=== PATIENT | female | born 1965 | race Two or more races ===

== ENCOUNTER 2017-01-24 13:14 | Inpatient (IN) | payer OTHER ==
[~2017-01-24] VITALS: Ht 167.6 cm; Wt 155.4 kg
[2017-01-24] VITALS (9 sets, daily range): BP systolic 80–109; BP diastolic 44–86
[2017-01-24] MEDS ORDERED: PredniSONE 20mg tab ORAL ONE (14:00)
--- NOTE | 2017-01-24 14:07 | Emergency Room Report ---
History of Present Illness General Chief Complaint: Upper Respiratory Illness Source: Patient Present Illness HPI 51 yo F with history of asthma, p/w SOB for 1 week SOB occurs both at rest and on exertion. + non productive cough. Denies chest pain. Patient has been using nebulizer x once a day, minimal relief. No recent steroid use. Pt states that this episode is similar to other episodes of asthma exacerbation. Denies fever, chills. Denies sick contacts or recent travel. Has required admission for asthma before. Patient denies history of ICU admissions, intubations, or usage of BIPAP for asthma. Denies history of PE/DVT, no recent surgeries, prolonged immobilzation, malignancy, or use of OCPs/HRT. Allergies: Coded Allergies: No Known Allergies (Unverified , 01/24/17) Patient History Past Medical History: none Past Surgical History: none Pertinent Family History: none Nursing Documentation-[facility] Past Medical History: No History, Except For Hx Hypertension: Yes Hx Asthma: Yes Hx Cerebrovascular Accident: No - RA Physical Exam Vital Signs Date Time Temp Pulse Resp B/P (MAP) Pulse Ox O2 Delivery O2 Flow Rate FiO2 01/24/17 13:32 97.9 97 20 97/65 97 Room Air Sp02 EP Interpretation: reviewed, normal, abnormal - hypoxic 90-92 General Appearance: normal inspection, well appearing, alert, GCS 15, non-toxic , mild distress Head: normocephalic, atraumatic Eyes: bilateral eye normal inspection, bilateral eye PERRL, bilateral eye EOMI ENT: normal ENT inspection, normal pharynx, normal voice, moist mucus membranes Neck: normal inspection, full range of motion, supple, no bony tend Respiratory: normal inspection, lungs clear, normal breath sounds, no respiratory distress, no retraction, no wheezing, speaking full sentences, chest symmetrical Cardiovascular #1: normal inspection, regular rate, rhythm, no edema, normal capillary refill Gastrointestinal: normal inspection, non tender, soft, non-distended, no guarding Musculoskeletal: normal inspection, back normal, normal range of motion, non- tender, other - no calf swelling/tenderness Neurologic: normal inspection, alert, oriented x3, responsive, manager respiratory III-XII nml as tested, motor strength/tone normal, sensory intact, normal gait, speech normal Psychiatric: normal inspection, judgement/insight normal, memory normal Skin: normal inspection, normal color, no rash, warm/dry, well hydrated, normal turgor Medical Decision Making Diagnostic Impression: Primary Impression: Hypoxia Additional Impression: Dyspnea ER Course 51 yo F with history of asthma p/w SOB DDX: asthma exacerbation, pneumonia, upper respiratory infection/viral syndrome , PE Plan: combivent nebulizer treatment x 3, steroids, EKG, CXR IV access, blood work including D-dimer ER Course: Patients respiratory status has been closely monitored in the ED. Patient has been treated with combivent x 3, steroids. Patient was tachycardic prior to administration of combivent, lung exam improved however patient stats she still feels lightheaded/sob Labs reveal: cr 1.6, mildly elevated D-dimer EKG: sinus tach, Q waves infero latral leads CXR poss R sided infiltrate D-dimer elevated (however only slightly) renal functional not amenable to CTA, and at this time d/w radiology and patient is too heavy for CT scanner Patient will be treated for presumed PE wit heparin given renal insuffiency IVF given to pt for slight renal insufficiency. I d/w radiology, cannot obtain VQ scan until tomorrow Patient currently with vitals HR 100, normal BP, hypoxic 90-92, inc with NC to 96 Repeat BP showed MAP >65 however now borderline BPs now with MAP 60s. Now deemed not stable for xfer Will admit to our facility. Heparin drip ordered Disposition: Patient will be admitted to telemetry floor at [facility] initially spoke to outside hospital receiving physician as pt was at that time stable for xfer, but now due to borderline low BP will not xfer. Patient requires close monitoring of respiratory status, continuation of AC, and VQ scan D/W Dr. Caldera . Laboratory Tests Test 01/24/17 14:05 01/24/17 17:00 01/24/17 17:40 White Blood Count 7.2 K/UL (4.8-10.8) Red Blood Count 4.40 M/UL (4.20-5.40) Hemoglobin 12.2 G/DL (12.0-16.0) Hematocrit 39.3 % (37.0-47.0) Mean Corpuscular Volume 89 FL (80-99) Mean Corpuscular Hemoglobin 27.8 PG (27.0-31.0) Mean Corpuscular Hemoglobin Concent 31.1 G/DL (32.0-36.0) L Red Cell Distribution Width 12.5 % (11.6-14.8) Platelet Count 349 K/UL (150-450) Mean Platelet Volume 7.6 FL (6.5-10.1) Neutrophils (%) (Auto) 59.5 % (45.0-75.0) Lymphocytes (%) (Auto) 31.4 % (20.0-45.0) Monocytes (%) (Auto) 5.9 % (1.0-10.0) Eosinophils (%) (Auto) 1.6 % (0.0-3.0) Basophils (%) (Auto) 1.6 % (0.0-2.0) D-Dimer 561 ng/mL (<500) H Sodium Level 139 mEQ/L (135-145) Potassium Level 4.0 mEQ/L (3.4-4.9) Chloride Level 100 mEQ/L (98-107) Carbon Dioxide Level 23 mEQ/L (20-30) Anion Gap 16 (5-15) H Blood Urea Nitrogen 28 mg/dL (7-23) H Creatinine 1.6 mg/dL (0.5-0.9) H Estimate Glomerular Filtration Rate 34.1 mL/min (>60) Glucose Level 120 mg/dL (74-106) H Calcium Level 9.2 mg/dL (8.6-10.2) Total Bilirubin 0.3 mg/dL (0.0-1.2) Aspartate Amino Transferase (AST) 14 U/L (5-40) Alanine Aminotransferase (ALT) 9 U/L (3-33) Alkaline Phosphatase 113 U/L (35-104) H Troponin I < 0.30 ng/mL (<=0.30) Total Protein 7.6 g/dL (6.6-8.7) Albumin 3.9 g/dL (3.5-5.2) Globulin 3.7 g/dL Albumin/Globulin Ratio 1.0 (1.0-2.7) Thyroid Stimulating Hormone (TSH) 0.005 uIU/mL (0.300-4.500) Prothrombin Time Pending Prothrombin Time INR Pending PTT Pending Arterial Blood pH 7.360 (7.350-7.450) Arterial Blood Partial Pressure CO2 37.2 mmHg (35.0-45.0) Arterial Blood Partial Pressure O2 69.5 mmHg (75.0-100.0) L Arterial Blood HCO3 21.0 mmol/L (22.0-26.0) L Arterial Blood Oxygen Saturation 92.2 % (92.0-98.0) Arterial Blood Base Excess -3.8 Janes Test Positive EKG Diagnostic Results Rate: tachycardiac Rhythm: NSR ST Segments: other - Q waves infero lateral leads sinus tach ASA given to the pt in ED: No Rhythm Strip Diag. Results EP Interpretation: yes Rhythm: NSR, no PVC's, no ectopy Chest X-Ray Diagnostic Results Chest X-Ray Diagnostic Results : Chest X-Ray Ordered: Yes # of Views/Limited/Complete: 1 View Indication: Shortness of Breath EP Interpretation: Yes Interpretation: other - poss R sided infiltrate Impression: Other - poss R sided infiltrate Interpreting ER Provider: Electronically signed by Guera Howard M.D. Last Vital Signs Date Time Temp Pulse Resp B/P (MAP) Pulse Ox O2 Delivery O2 Flow Rate FiO2 01/24/17 13:45 97.9 109 21 94/55 99 Room Air Disposition: ADMITTED INPATIENT Condition: Serious Guera Howard M.D. Jan 24, 2017 14:07
[2017-01-24 14:26] LABS: BASOPHILS % (AUTO) 1.6 % (0.0-2.0); EOSINOPHILS % (AUTO) 1.6 % (0.0-3.0); LYMPHOCYTES % (AUTO) 31.4 % (20.0-45.0); MEAN CORPUSCULAR HEMOGLOBIN 27.8 PG (27.0-31.0); MEAN CORPUSCULAR HGB CONC 31.1 G/DL (32.0-36.0); MEAN CORPUSCULAR VOLUME 89 FL (80-99); MEAN PLATELET VOLUME 7.6 FL (6.5-10.1); MONOCYTES % (AUTO) 5.9 % (1.0-10.0); NEUTROPHILS % (AUTO) 59.5 % (45.0-75.0); PLATELET COUNT 349 K/UL (150-450); RED CELL DISTRIBUTION WIDTH 12.5 % (11.6-14.8); WHITE BLOOD COUNT 7.2 K/UL (4.8-10.8)
[2017-01-24] MEDS: DuoNeb 0.5-3(2.5)mg/3ml neb HHN SCH ×5 (14:30→15:15)
[2017-01-24 14:38] LABS: CALCIUM 9.2 mg/dL (8.6-10.2); CREATININE 1.6 mg/dL (0.5-0.9); GLOMERULAR FILTRATION RATE 34.1 mL/min (>60); TOTAL PROTEIN 7.6 g/dL (6.6-8.7); TROPONIN I < 0.30 ng/mL (<=0.30)
[2017-01-24 15:02] LABS: THYROID STIMULATING HORMONE 0.005 uIU/mL (0.300-4.500)
[2017-01-24 17:43] LABS: ABG ALLEN TEST POSITIVE; ABG BASE EXCESS -3.8; ABG PCO2 37.2 mmHg (35.0-45.0)
[2017-01-24] MEDS ORDERED: Heparin 5000 units/ml inj SUBQ ONE (17:45)
[2017-01-24 18:04] LABS: INR 1.1 (0.9-1.1); PROTHROMBIN TIME 11.9 SEC (9.30-11.50)
[2017-01-24] MEDS ORDERED: Heparin 5000 units/ml inj IV ONE (19:00)
[2017-01-24] MEDS ORDERED: Heparin 25,000u/D5W 500ml 500 ML IV SCH ×2 (19:00)
[2017-01-24] MEDS ORDERED: IBUPROFEN600 MG ORAL (19:44)
[2017-01-24] MEDS ORDERED: VENTOLIN HFA18 GM INH (19:44)
[2017-01-24] MEDS ORDERED: TRAMADOL HCL50 MG ORAL (19:44)
[2017-01-24] MEDS ORDERED: MONTELUKAST SOD10 MG ORAL (19:44)
[2017-01-24] MEDS ORDERED: QVAR7.3 GM INH (19:44)
[2017-01-24] MEDS ORDERED: OMEPRAZOLE40 M1 ORAL (19:44)
[2017-01-24] MEDS ORDERED: BENAZEPRIL HCL40 MG ORAL (19:44)
[2017-01-24] MEDS ORDERED: CELEBREX200 MG ORAL (19:44)
[2017-01-24] MEDS ORDERED: HYDROCHLOROTH12.5 MG ORAL (19:44)
[2017-01-24] MEDS ORDERED: GABAPENTIN800 MG ORAL (19:44)
[2017-01-24] MEDS ORDERED: Acetaminophen 500mg (ES) tab ORAL ONE (20:30)
[2017-01-25] MEDS ORDERED: Heparin 25,000u/D5W 500ml 500 ML IV SCH ×3 (00:15→10:30)
[2017-01-25] MEDS ORDERED: DuoNeb 0.5-3(2.5)mg/3ml neb HHN PRN ×2 (00:15→18:00)
[2017-01-25] MEDS ORDERED: traMADol 50mg tab ORAL PRN ×2 (00:15→18:15)
[2017-01-25 01:20] LABS: BASOPHILS % (AUTO) 0.4 % (0.0-2.0); LYMPHOCYTES % (AUTO) 14.4 % (20.0-45.0); MEAN CORPUSCULAR HEMOGLOBIN 28.7 PG (27.0-31.0); MEAN CORPUSCULAR HGB CONC 32.3 G/DL (32.0-36.0); MEAN CORPUSCULAR VOLUME 89 FL (80-99); MONOCYTES % (AUTO) 1.7 % (1.0-10.0); NEUTROPHILS % (AUTO) 83.5 % (45.0-75.0); PLATELET COUNT 293 K/UL (150-450); RED BLOOD COUNT 3.94 M/UL (4.20-5.40); RED CELL DISTRIBUTION WIDTH 12.6 % (11.6-14.8); WHITE BLOOD COUNT 5.4 K/UL (4.8-10.8)
[2017-01-25 02:00] LABS: TROPONIN I < 0.30 ng/mL (<=0.30)
[2017-01-25 02:02] LABS: ALANINE AMINOTRANSFERASE 7 U/L (3-33); ALBUMIN/GLOBULIN RATIO 0.9 (1.0-2.7); ANION GAP 15 (5-15); ASPARTATE AMINO TRANSFERASE 12 U/L (5-40); CALCIUM 8.8 mg/dL (8.6-10.2); CARBON DIOXIDE 20 mEQ/L (20-30); CHLORIDE 105 mEQ/L (98-107); CREATININE 1.3 mg/dL (0.5-0.9); GLOMERULAR FILTRATION RATE 43.3 mL/min (>60); HEMOLYSIS 0; PHOSPHORUS 3.7 mg/dL (2.5-4.8); POTASSIUM 4.2 mEQ/L (3.4-4.9); SODIUM 140 mEQ/L (135-145); TOTAL PROTEIN 6.9 g/dL (6.6-8.7)
[2017-01-25 04:00] VITALS: BP 101/54
[2017-01-25 06:50] VITALS: BP 91/50
[2017-01-25 08:00] VITALS: BP 105/52
[2017-01-25] MEDS ORDERED: Qvar 40mcg Inhaler 6.8 gm INH SCH (09:00)
[2017-01-25] MEDS ORDERED: Montelukast 10mg tablet ORAL SCH (09:00)
[2017-01-25] MEDS ORDERED: celeBREX 200mg Cap **SURGERY PATIENTS ONLY ORAL SCH (09:00)
[2017-01-25] MEDS: DuoNeb 0.5-3(2.5)mg/3ml neb HHN SCH ×3 (09:45→22:54)
--- NOTE | 2017-01-25 11:44 | Diagnostic Imaging Report ---
Indication: Dyspnea Comparison: None A single view chest radiograph was obtained. Findings: There is a right chest wall deformity with several fractured ribs. These appear old. The lungs are clear. Cardiomegaly is present. Costophrenic angles are sharp. Impression: No acute disease
[2017-01-25 11:59] VITALS: BP 101/60
--- NOTE | 2017-01-25 12:26 | Diagnostic Imaging Report ---
Indication: Chest pain Technique: A ventilation/perfusion scan was performed. Ventilation was performed utilizing 40 mCi of Technetium 99m-DTPA. Perfusion was performed with 5.8 mCi of technetium 99m-MAA injected intravenously. Multiple side by side projections obtained. Findings: Ventilation is mildly heterogeneous. No desiccant defects are identified. Perfusion is mildly heterogeneous. No significant defects are identified. Impression: Low probability for pulmonary embolus
--- NOTE | 2017-01-25 13:44 | Consultation ---
History of Present Illness General Date patient seen: Jan 25, 2017 Chief Complaint: Upper Respiratory Illness Reason for Consultation: dyspnea Present Illness Allergies: Coded Allergies: No Known Allergies (Unverified , 01/24/17) Medication History Scheduled Albuterol Sulfate (Ventolin Hfa), 1 PUFF INH EVERY 6 HOURS, (Reported) Beclomethasone Dipropionate 40MCG Oral Inh (Qvar 40*), 1 PUFF INH TWICE A DAY, ( Reported) Benazepril Hcl* (Benazepril Hcl*), 40 MG ORAL DAILY, (Reported) Celecoxib* (Celebrex*), 200 MG ORAL DAILY, (Reported) Gabapentin* (Gabapentin*), 800 MG ORAL THREE TIMES A DAY, (Reported) Hydrochlorothiazide* (Hydrochlorothiazide*), 12.5 MG ORAL DAILY, (Reported) Montelukast Sodium* (Montelukast Sodium*), 10 MG ORAL DAILY, (Reported) Omeprazole (Omeprazole), 40 MG ORAL DAILY, (Reported) Scheduled PRN Tramadol Hcl* (Ultram*), 50 MG ORAL Q6H PRN for For Pain, (Reported) Discontinued Medications Ibuprofen* (Motrin*), 800 MG ORAL FOUR TIMES A DAY, (Reported) Discontinued Reason: MD discontinued med Patient History Healthcare decision maker Resuscitation status Full Code Advanced Directive on File Review of Systems All Other Systems: negative except mentioned in HPI Physical Exam General Appearance: morbidly obese Lines, tubes and drains: peripheral, central line HEENT: normocephalic, atraumatic Neck: non-tender, normal alignment, limited range of motion Respiratory/Chest: lungs clear Cardiovascular/Chest: normal peripheral pulses, regular rhythm Abdomen: normal bowel sounds Genitourinary/Rectal: normal genital exam Extremities: normal range of motion Last 24 Hour Vital Signs Date Time Temp Pulse Resp B/P (MAP) Pulse Ox O2 Delivery O2 Flow Rate FiO2 01/25/17 11:59 97.0 89 21 101/60 97 Nasal Cannula 2.0 01/25/17 09:57 105/52 01/25/17 09:45 75 18 100 Room Air 01/25/17 09:45 75 18 100 Room Air 01/25/17 09:45 73 20 100 Room Air 01/25/17 09:40 75 18 100 Room Air 01/25/17 08:00 81 01/25/17 08:00 97.2 89 21 105/52 98 Nasal Cannula 2.0 01/25/17 06:50 98.1 95 19 91/50 95 Nasal Cannula 95 01/25/17 04:00 98.1 92 19 101/54 95 Nasal Cannula 92 01/25/17 04:00 95 01/25/17 00:30 97.9 117 11 106/56 96 Nasal Cannula 2.0 01/24/17 23:49 97.9 117 11 106/56 96 Nasal Cannula 2.0 01/24/17 21:46 97.9 01/24/17 21:40 97.9 101 16 102/53 95 Nasal Cannula 2.0 01/24/17 19:40 97.9 106 16 106/64 95 Nasal Cannula 2.0 01/24/17 18:31 97.9 101 20 92/48 95 Nasal Cannula 2.0 01/24/17 18:11 97.9 98 18 109/86 97 Nasal Cannula 2.0 01/24/17 18:06 97.9 103 18 101/81 96 Nasal Cannula 2.0 01/24/17 17:40 97.9 106 20 101/54 96 Room Air 01/24/17 15:42 97.9 110 20 80/44 97 Room Air 01/24/17 14:51 78 20 100 Room Air 01/24/17 14:46 79 18 100 Room Air 01/24/17 14:45 79 20 100 Room Air 01/24/17 14:40 77 18 100 Room Air 01/24/17 14:40 77 18 Room Air 01/24/17 14:00 109 21 Room Air 01/24/17 13:45 97.9 109 21 94/55 99 Room Air Laboratory Tests Test 01/24/17 14:05 01/24/17 17:00 01/24/17 17:40 01/25/17 01:05 White Blood Count 7.2 K/UL (4.8-10.8) 5.4 K/UL (4.8-10.8) Red Blood Count 4.40 M/UL (4.20-5.40) 3.94 M/UL (4.20-5.40) L Hemoglobin 12.2 G/DL (12.0-16.0) 11.3 G/DL (12.0-16.0) L Hematocrit 39.3 % (37.0-47.0) 35.0 % (37.0-47.0) L Mean Corpuscular Volume 89 FL (80-99) 89 FL (80-99) Mean Corpuscular Hemoglobin 27.8 PG (27.0-31.0) 28.7 PG (27.0-31.0) Mean Corpuscular Hemoglobin Concent 31.1 G/DL (32.0-36.0) L 32.3 G/DL (32.0-36.0) Red Cell Distribution Width 12.5 % (11.6-14.8) 12.6 % (11.6-14.8) Platelet Count 349 K/UL (150-450) 293 K/UL (150-450) Mean Platelet Volume 7.6 FL (6.5-10.1) 7.0 FL (6.5-10.1) Neutrophils (%) (Auto) 59.5 % (45.0-75.0) 83.5 % (45.0-75.0) H Lymphocytes (%) (Auto) 31.4 % (20.0-45.0) 14.4 % (20.0-45.0) L Monocytes (%) (Auto) 5.9 % (1.0-10.0) 1.7 % (1.0-10.0) Eosinophils (%) (Auto) 1.6 % (0.0-3.0) 0.0 % (0.0-3.0) Basophils (%) (Auto) 1.6 % (0.0-2.0) 0.4 % (0.0-2.0) D-Dimer 561 ng/mL (<500) H Sodium Level 139 mEQ/L (135-145) 140 mEQ/L (135-145) Potassium Level 4.0 mEQ/L (3.4-4.9) 4.2 mEQ/L (3.4-4.9) Chloride Level 100 mEQ/L (98-107) 105 mEQ/L (98-107) Carbon Dioxide Level 23 mEQ/L (20-30) 20 mEQ/L (20-30) Anion Gap 16 (5-15) H 15 (5-15) Blood Urea Nitrogen 28 mg/dL (7-23) H 30 mg/dL (7-23) H Creatinine 1.6 mg/dL (0.5-0.9) H 1.3 mg/dL (0.5-0.9) H Estimat Glomerular Filtration Rate 34.1 mL/min (>60) 43.3 mL/min (>60) Glucose Level 120 mg/dL (74-106) H 182 mg/dL (74-106) H Calcium Level 9.2 mg/dL (8.6-10.2) 8.8 mg/dL (8.6-10.2) Total Bilirubin 0.3 mg/dL (0.0-1.2) < 0.2 mg/dL (0.0-1.2) Aspartate Amino Transf (AST/SGOT) 14 U/L (5-40) 12 U/L (5-40) Alanine Aminotransferase (ALT/SGPT) 9 U/L (3-33) 7 U/L (3-33) Alkaline Phosphatase 113 U/L (35-104) H 100 U/L (35-104) Troponin I < 0.30 ng/mL (<=0.30) < 0.30 ng/mL (<=0.30) Total Protein 7.6 g/dL (6.6-8.7) 6.9 g/dL (6.6-8.7) Albumin 3.9 g/dL (3.5-5.2) 3.3 g/dL (3.5-5.2) L Globulin 3.7 g/dL 3.6 g/dL Albumin/Globulin Ratio 1.0 (1.0-2.7) 0.9 (1.0-2.7) L Thyroid Stimulating Hormone (TSH) 0.005 uIU/mL (0.300-4.500) Prothrombin Time 11.9 SEC (9.30-11.50) H Prothromb Time International Ratio 1.1 (0.9-1.1) Activated Partial Thromboplast Time 37 SEC (23-33) H 143 SEC (23-33) H Arterial Blood pH 7.360 (7.350-7.450) Arterial Blood Partial Pressure CO2 37.2 mmHg (35.0-45.0) Arterial Blood Partial Pressure O2 69.5 mmHg (75.0-100.0) L Arterial Blood HCO3 21.0 mmol/L (22.0-26.0) L Arterial Blood Oxygen Saturation 92.2 % (92.0-98.0) Arterial Blood Base Excess -3.8 Janes Test Positive Phosphorus Level 3.7 mg/dL (2.5-4.8) Magnesium Level 2.0 mg/dL (1.7-2.5) Test 01/25/17 09:45 Activated Partial Thromboplast Time 47 SEC (23-33) H Height (Feet): 5 Height (Inches): 6.00 Weight (Pounds): 342 Medications Current Medications Medications (Trade) Dose Ordered Sig/Jarrett Route PRN Reason Start Time Stop Time Status Last Admin Dose Admin Albuterol/ Ipratropium (DuoNeb 0.5-3(2.5)mg/3ml) 3 ml Q4H PRN HHN Shortness of Breath 01/25/17 00:15 01/30/17 00:14 Albuterol/ Ipratropium (DuoNeb 0.5-3(2.5)mg/3ml) 3 ml Q8HRT HHN 01/25/17 07:00 01/30/17 06:59 01/25/17 09:45 Beclomethasone Dipropionate (Qvar 40 Inhaler) 1 puff TWICE A DAY INH 01/25/17 09:00 02/24/17 08:59 01/25/17 09:54 Benazepril HCl (Lotensin) 40 mg DAILY ORAL 01/25/17 09:00 02/24/17 08:59 Celecoxib (CeleBREX) 200 mg DAILY ORAL 01/25/17 09:00 02/24/17 08:59 01/25/17 10:00 Gabapentin (Neurontin) 800 mg THREE TIMES A DAY ORAL 01/25/17 09:00 02/24/17 08:59 01/25/17 09:55 Hydrochlorothiazide (Hydrodiuril) 12.5 mg DAILY ORAL 01/25/17 09:00 02/24/17 08:59 01/25/17 09:56 Montelukast Sodium (Singulair) 10 mg DAILY ORAL 01/25/17 09:00 02/24/17 08:59 01/25/17 09:56 Tramadol HCl (Ultram) 50 mg Q6H PRN ORAL For Pain 01/25/17 00:15 02/01/17 00:14 Assessment/Plan Problem List: (1) Acute asthma exacerbation ICD Codes: J45.901 - Unspecified asthma with (acute) exacerbation SNOMED: 364497653 (2) History of hypertension ICD Codes: Z86.79 - Personal history of other diseases of the circulatory system SNOMED: 154965319 Assessment/Plan respiratory treatment short course of steroids check sputum dvt prophylaxis V/q was negative for PE IDANIA TORRES Jan 25, 2017 13:44
--- NOTE | 2017-01-25 15:42 | History & Physical ---
History and Physical History & Physicial Dictated for Int Med-Dr Caldera no. [id number]. BRUNO LEES Jan 25, 2017 15:42
[2017-01-25 16:01] VITALS: BP 101/58
[2017-01-25] MEDS ORDERED: Tubing IV Secondary IV ONE (16:16)
[2017-01-25] MEDS ORDERED: NS 275ml ONE (16:16)
[2017-01-25] MEDS ORDERED: Solu-MEDROL 125mg Inj IVP SCH (18:00)
[2017-01-25] MEDS: Solu-MEDROL 125mg Inj IVP SCH (18:21)
[2017-01-25 20:00] VITALS: BP 115/63
[2017-01-25] MEDS: Qvar 40mcg Inhaler 6.8 gm INH SCH (21:38)
[2017-01-26] MEDS: Solu-MEDROL 125mg Inj IVP SCH ×4 (00:11→22:21)
--- NOTE | 2017-01-26 01:15 | History and Physical Report ---
DATE OF ADMISSION: 01/25/2017 CHIEF COMPLAINT: The patient is a 51-year-old white female, who presents with a chief complaint of shortness of breath and chest pain. HISTORY OF PRESENT ILLNESS: Began one day prior to admission. The patient states she began to experience shortness of breath. The patient also complains of chest pain. The patient states pain is not sharp, however, states the pain as "heaviness." The patient's is present and says, "her asthma was acting up." The patient presented to [facility] emergency room. The patient was admitted for chest pain and shortness of breath to rule out pulmonary embolism. PAST MEDICAL HISTORY: Significant for: 1. Asthma. 2. Hypertension. 3. History of osteoarthritis of the knees. PAST SURGICAL HISTORY: Significant for umbilical hernia repair. CURRENT MEDICATIONS: 1. Albuterol metered-dose inhaler two puffs p.o. q.i.d. p.r.n. 2. QVAR one puff p.o. twice daily. 3. Benazepril 40 mg one tablet p.o. daily. 4. Celebrex 200 mg one tablet p.o. daily. 5. Gabapentin 800 mg one tablet p.o. three times daily. 6. Hydrochlorothiazide 12.5 mg one tablet p.o. daily. 7. Singulair 10 mg one tablet p.o. daily. 8. Omeprazole 40 mg one tablet p.o. daily. 9. Tramadol 50 mg one tablet p.o. q.6 hours p.r.n. ALLERGIES: No known drug allergies. SOCIAL HISTORY: The patient is and is unemployed. The patient denies tobacco use. The patient admits to rare alcohol use. REVIEW OF SYSTEMS: Constitutional: The patient denies weight loss or weight gain. The patient denies fevers or chills. HEENT: The patient denies ear or throat pain. Cardiovascular: The patient denies palpitations. The patient complains of chest pain as above. Chest: The patient complains of shortness of breath as above. The patient denies wheezes. Abdomen: The patient denies nausea, vomiting, diarrhea, or constipation. Genitourinary: The patient denies dysuria or increased frequency of urination. Neuromuscular: The patient denies seizures or generalized weakness. PHYSICAL EXAMINATION: VITAL SIGNS: Temperature 97.9 degrees, respirations 19, pulse 92 to 117, and blood pressure 91 to 106/50 to 56. GENERAL: The patient is a well-developed and well-nourished obese white female, in no apparent distress. HEENT: Eyes, pupils are equal and responsive to light and accommodation. Extraocular movements are intact. NECK: Supple without lymphadenopathy. CHEST: Few crackles in the right lower lung base, otherwise clear to auscultation bilaterally without wheezes or rales. CARDIOVASCULAR: Regular rhythm and rate. S1 and S2 are normal without murmurs, rubs, or gallops. ABDOMEN: Soft, nontender, and nondistended. Positive bowel sounds. No evidence of hepatosplenomegaly. Currently, no rebound or guarding noted. EXTREMITIES: Negative for clubbing, cyanosis, or edema. RECTAL/GENITAL: Refused. NEUROLOGIC: Cranial nerves II through XII are grossly intact without focal deficits. Motor strength is 5/5 bilaterally. Deep tendon reflexes are 2+ plantar. LABORATORY AND DIAGNOSTIC DATA: Laboratory studies, WBC is 7.2, hemoglobin 12.2, hematocrit 39.3, and platelets 349,000. Sodium 139, potassium 4.0, chloride 100, CO2 23, BUN 20, creatinine 1.6, and glucose 120. Troponin less than 0.3. Chest x-ray was reported as no acute disease. A ventilation/perfusion scan is pending. ASSESSMENT: This is a 51-year-old white female with: 1. Shortness of breath. 2. Chest pain. 3. Asthma. 4. Hypertension. 5. Osteoarthritis. TREATMENT: 1. Shortness of breath/chest pain. A Pulmonary consultation has been obtained with Dr. Lc Best. A ventilation/perfusion scan of the chest is pending. The patient has been started empirically on heparin. We will follow recommendations of Pulmonary. 2. Asthma. Continue albuterol metered-dose inhaler two puffs p.o. q.i.d. p.r.n. The patient has been placed on albuterol nebulized q.4 h. p.r.n. 3. Hypertension. Continue hydrochlorothiazide as above. 4. Osteoarthritis. Continue Celebrex as above. Torey Price M.D. DR: VALENTIN JOB#: [id number] CC:
[2017-01-26 04:00] VITALS: BP 118/76
[2017-01-26] MEDS: DuoNeb 0.5-3(2.5)mg/3ml neb HHN SCH ×4 (08:04→23:16)
[2017-01-26 08:05] VITALS: BP 126/76
--- NOTE | 2017-01-26 08:33 | Pulmonology Progress Note ---
Assessment/Plan Assessment/Plan ASSESSMENT Acute asthma Exacerbation HTN Acute renal failure -resolved Elevated D dimer hyperkalemia PLAN OF CARE transferred to [facility] floor O2 to keep sat above 92% Pulmonary toilet prn ABG on RA with sat 92% IV steroids and taper Empiric abx Sputum cx a/tussive prn CXR no acute cardiopulmonary pathology Elevated D dimer but VQ scan no evidence of PE s/p IVF x 1 L Monitor renal parameters, lytes, creat down to normal K-5,5. on AIDA, dc AIDA, start BB kayexalate x 1 today Avoid nephrotoxic Continue Singular Low TSH noted, checked free T4 and T3 , recommend to recheck thyroid panel in 1 month , ( thyroiditis likely due to underlying inflammatory process) case discussed and evaluated by supervising physician Subjective Allergies: Coded Allergies: No Known Allergies (Unverified , 01/24/17) Subjective feeling better, still chest tightness less wheezing, + cough, non productive Objective Last 24 Hour Vital Signs Date Time Temp Pulse Resp B/P (MAP) Pulse Ox O2 Delivery O2 Flow Rate FiO2 01/26/17 08:08 102 17 100 Room Air 01/26/17 04:00 97.6 99 18 118/76 94 Room Air 01/25/17 23:01 86 18 100 Room Air 21 01/25/17 22:56 86 18 99 Room Air 21 01/25/17 21:47 86 18 99 Room Air 01/25/17 21:47 86 18 99 Room Air 01/25/17 20:00 98.5 94 18 115/63 94 Room Air 01/25/17 16:01 97.5 98 22 101/58 95 Nasal Cannula 2.0 01/25/17 15:35 96 18 100 Room Air 21 01/25/17 15:30 98 18 95 Room Air 21 01/25/17 12:00 90 01/25/17 11:59 97.0 89 21 101/60 97 Nasal Cannula 2.0 01/25/17 09:57 105/52 01/25/17 09:45 75 18 100 Room Air 01/25/17 09:45 75 18 100 Room Air 01/25/17 09:45 73 20 100 Room Air 01/25/17 09:40 75 18 100 Room Air General Appearance: no acute distress, other - A/A/O x 4 obese female HEENT: normocephalic, atraumatic, anicteric, mucous membranes moist, PERRL Respiratory/Chest: expiratory wheezing - scattered Cardiovascular: normal peripheral pulses, normal rate, regular rhythm Abdomen: normal bowel sounds, soft, non tender - obese Extremities: no edema Neurologic/Psychiatric: yarn spinner II-XII grossly normal, alert, oriented x 3, responsive, normal mood/affect Musculoskeletal: normal muscle bulk Laboratory Tests 01/25/17 09:45: Activated Partial Thromboplast Time 47H 01/25/17 17:08: Activated Partial Thromboplast Time 32 Current Medications Medications (Trade) Dose Ordered Sig/Jarrett Route PRN Reason Start Time Stop Time Status Last Admin Dose Admin Albuterol/ Ipratropium (DuoNeb 0.5-3(2.5)mg/3ml) 3 ml Q4H PRN HHN Shortness of Breath 01/25/17 18:00 01/30/17 17:59 Albuterol/ Ipratropium (DuoNeb 0.5-3(2.5)mg/3ml) 3 ml Q8HRT HHN 01/25/17 23:00 01/30/17 06:59 01/26/17 08:04 Beclomethasone Dipropionate (Qvar 40 Inhaler) 1 puff TWICE A DAY INH 01/25/17 18:00 02/24/17 08:59 01/25/17 21:38 Benazepril HCl (Lotensin) 40 mg DAILY ORAL 01/26/17 09:00 02/24/17 08:59 Celecoxib (CeleBREX) 200 mg DAILY ORAL 01/26/17 09:00 02/24/17 08:59 Gabapentin (Neurontin) 800 mg THREE TIMES A DAY ORAL 01/25/17 18:00 02/24/17 08:59 01/25/17 18:21 Hydrochlorothiazide (Hydrodiuril) 12.5 mg DAILY ORAL 01/26/17 09:00 02/24/17 08:59 Levofloxacin 100 ml @ 100 mls/hr Q24H IVPB 01/26/17 15:00 02/01/17 14:59 Methylprednisolone Sodium Succinate (Solu-MEDROL) 60 mg EVERY 6 HOURS IVP 01/25/17 18:00 02/24/17 17:59 01/26/17 05:39 Montelukast Sodium (Singulair) 10 mg DAILY ORAL 01/26/17 09:00 02/24/17 08:59 Tramadol HCl (Ultram) 50 mg Q6H PRN ORAL For Pain 01/25/17 18:15 02/01/17 00:14 Jose J ([facility])oJan NP Jan 26, 2017 08:33
[2017-01-26] MEDS: Montelukast 10mg tablet ORAL SCH (09:34)
[2017-01-26] MEDS: celeBREX 200mg Cap **SURGERY PATIENTS ONLY ORAL SCH (09:34)
[2017-01-26 11:06] LABS: MEAN CORPUSCULAR HEMOGLOBIN 28.8 PG (27.0-31.0); MEAN CORPUSCULAR HGB CONC 31.7 G/DL (32.0-36.0); MEAN CORPUSCULAR VOLUME 91 FL (80-99); MEAN PLATELET VOLUME 7.5 FL (6.5-10.1); PLATELET COUNT 310 K/UL (150-450); RED BLOOD COUNT 4.09 M/UL (4.20-5.40); RED CELL DISTRIBUTION WIDTH 12.7 % (11.6-14.8); WHITE BLOOD COUNT 6.9 K/UL (4.8-10.8)
[2017-01-26 11:27] LABS: BAND NEUTROPHILS % (MANUAL) 0 % (0-8); BASOPHILS % (MANUAL) 0 % (0-2); EOSINOPHILS % (MANUAL) 0 % (0-3); HYPOCHROMASIA 1+; LYMPHOCYTES % (MANUAL) 6 % (20-45); NEUTROPHILS % (MANUAL) 94 % (45-75); PLATELET ESTIMATE ADEQUATE; PLATELET MORPHOLOGY NORMAL; TOTAL CELLS COUNTED 100
[2017-01-26 11:30] LABS: TROPONIN I < 0.30 ng/mL (<=0.30)
[2017-01-26] MEDS ORDERED: Promethazine/Codeine 5ml UD ORAL PRN (12:00)
[2017-01-26 12:04] LABS: CHLORIDE 102 mEQ/L (98-107); CREATININE 0.9 mg/dL (0.5-0.9); GLOMERULAR FILTRATION RATE > 60 mL/min (>60); POTASSIUM 5.5 mEQ/L (3.4-4.9); SODIUM 138 mEQ/L (135-145)
[2017-01-26 12:06] LABS: ANION GAP 14 (5-15); CALCIUM 9.6 mg/dL (8.6-10.2); CARBON DIOXIDE 22 mEQ/L (20-30)
[2017-01-26 12:10] VITALS: BP 120/68
[2017-01-26] MEDS ORDERED: Sodium Polystyrene Sulfonate 15gm Powder ORAL ONE (13:00)
--- NOTE | 2017-01-26 14:39 | Internal Med Progress Note ---
Subjective Date of Service: Jan 26, 2017 Physician Name Torey Lees Attending Physician Mitchell Caldera MD Current Medications Medications (Trade) Dose Ordered Sig/Jarrett Route PRN Reason Start Time Stop Time Status Last Admin Dose Admin Albuterol/ Ipratropium (DuoNeb 0.5-3(2.5)mg/3ml) 3 ml Q4H PRN HHN Shortness of Breath 01/25/17 18:00 01/30/17 17:59 Albuterol/ Ipratropium (DuoNeb 0.5-3(2.5)mg/3ml) 3 ml Q8HRT HHN 01/25/17 23:00 01/30/17 06:59 01/26/17 08:04 Atenolol (Tenormin) 25 mg DAILY ORAL 01/27/17 09:00 02/26/17 08:59 Beclomethasone Dipropionate (Qvar 40 Inhaler) 1 puff TWICE A DAY INH 01/25/17 18:00 02/24/17 08:59 01/25/17 21:38 Celecoxib (CeleBREX) 200 mg DAILY ORAL 01/26/17 09:00 02/24/17 08:59 01/26/17 09:34 Gabapentin (Neurontin) 800 mg THREE TIMES A DAY ORAL 01/25/17 18:00 02/24/17 08:59 01/26/17 12:20 Hydrochlorothiazide (Hydrodiuril) 12.5 mg DAILY ORAL 01/26/17 09:00 02/24/17 08:59 01/26/17 09:33 Levofloxacin 100 ml @ 100 mls/hr Q24H IVPB 01/26/17 15:00 02/01/17 14:59 Methylprednisolone Sodium Succinate (Solu-MEDROL) 60 mg EVERY 8 HOURS IVP 01/26/17 14:00 02/24/17 17:59 Montelukast Sodium (Singulair) 10 mg DAILY ORAL 01/26/17 09:00 02/24/17 08:59 01/26/17 09:34 Promethazine HCl/ Codeine (Phenergan with Codeine) 5 ml Q4H PRN ORAL For Cough 01/26/17 12:00 02/25/17 11:59 Tramadol HCl (Ultram) 50 mg Q6H PRN ORAL For Pain 01/25/17 18:15 02/01/17 00:14 Allergies: Coded Allergies: No Known Allergies (Unverified , 01/24/17) ROS Limited/Unobtainable: No Constitutional: Reports: no symptoms HEENT: Reports: no symptoms Cardiovascular: Reports: no symptoms Respiratory: Reports: shortness of breath Gastrointestinal/Abdominal: Reports: no symptoms Genitourinary: Reports: no symptoms Neurologic/Psychiatric: Reports: no symptoms Subjective 51 YO F admitted with shortness of breath and chest pain. Cover for Int Med-Dr Caldera. Objective Last Vital Signs Date Time Temp Pulse Resp B/P (MAP) Pulse Ox O2 Delivery O2 Flow Rate FiO2 01/26/17 12:10 98.3 96 18 120/68 96 Room Air 01/25/17 23:01 21 01/25/17 16:01 2.0 General Appearance: WD/WN, no apparent distress, alert, obese EENT: PERRL/EOMI, normal ENT inspection, TMs normal Neck: non-tender, normal alignment, supple, normal inspection Cardiovascular: normal peripheral pulses, normal rate, regular rhythm, no gallop/murmur, no JVD Respiratory/Chest: chest wall non-tender, no respiratory distress, no accessory muscle use, crackles/rales, rhonchi - bilaterally, expiratory wheezing Abdomen: normal bowel sounds, non tender, soft, no organomegaly, no mass Extremities: normal range of motion 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, no motor/sensory deficits Skin: normal pigmentation, warm/dry Laboratory Tests Test 01/25/17 17:08 01/26/17 10:00 Activated Partial Thromboplast Time 32 SEC (23-33) White Blood Count 6.9 K/UL (4.8-10.8) Red Blood Count 4.09 M/UL (4.20-5.40) L Hemoglobin 11.8 G/DL (12.0-16.0) L Hematocrit 37.2 % (37.0-47.0) Mean Corpuscular Volume 91 FL (80-99) Mean Corpuscular Hemoglobin 28.8 PG (27.0-31.0) Mean Corpuscular Hemoglobin Concent 31.7 G/DL (32.0-36.0) L Red Cell Distribution Width 12.7 % (11.6-14.8) Platelet Count 310 K/UL (150-450) Mean Platelet Volume 7.5 FL (6.5-10.1) Neutrophils (%) (Auto) % (45.0-75.0) Lymphocytes (%) (Auto) % (20.0-45.0) Monocytes (%) (Auto) % (1.0-10.0) Eosinophils (%) (Auto) % (0.0-3.0) Basophils (%) (Auto) % (0.0-2.0) Differential Total Cells Counted 100 Neutrophils % (Manual) 94 % (45-75) H Lymphocytes % (Manual) 6 % (20-45) L Monocytes % (Manual) 0 % (1-10) L Eosinophils % (Manual) 0 % (0-3) Basophils % (Manual) 0 % (0-2) Band Neutrophils 0 % (0-8) Platelet Estimate Adequate Platelet Morphology Normal Hypochromasia 1+ Sodium Level 138 mEQ/L (135-145) Potassium Level 5.5 mEQ/L (3.4-4.9) H Chloride Level 102 mEQ/L (98-107) Carbon Dioxide Level 22 mEQ/L (20-30) Anion Gap 14 (5-15) Blood Urea Nitrogen 24 mg/dL (7-23) H Creatinine 0.9 mg/dL (0.5-0.9) Estimat Glomerular Filtration Rate > 60 mL/min (>60) Glucose Level 158 mg/dL (74-106) H Calcium Level 9.6 mg/dL (8.6-10.2) Troponin I < 0.30 ng/mL (<=0.30) Free Thyroxine 1.88 ng/dL (0.86-1.85) H Free Triiodothyronine Pending Assessment/Plan Problem List: (1) Shortness of breath (2) Chest pain Assessment & Plan: V/Q scan low prob for PE. See pulmonary note. (3) Acute asthma exacerbation Assessment & Plan: See pulmonary note. Cont albuterol nebs and I V solumedrol. (4) HTN (hypertension) Assessment & Plan: Continue HCTZ (5) Bronchitis Assessment & Plan: Continue levaquin per pulmonary Status: progressing TOREY LEES Jan 26, 2017 14:39
[2017-01-26] MEDS: Qvar 40mcg Inhaler 6.8 gm INH SCH ×2 (15:27→18:00)
[2017-01-26 16:00] VITALS: BP 101/57
[2017-01-26 20:00] VITALS: BP 105/58
[2017-01-27] VITALS (7 sets, daily range): BP systolic 94–116; BP diastolic 53–78
[2017-01-27] MEDS: DuoNeb 0.5-3(2.5)mg/3ml neb HHN SCH ×6 (03:00→23:00)
[2017-01-27] MEDS: Solu-MEDROL 125mg Inj IVP SCH (05:56)
[2017-01-27 08:10] LABS: CALCIUM 8.8 mg/dL (8.6-10.2); GLOMERULAR FILTRATION RATE 58.7 mL/min (>60); POTASSIUM 4.1 mEQ/L (3.4-4.9)
[2017-01-27 08:13] LABS: BASOPHILS % (AUTO) 0.4 % (0.0-2.0); LYMPHOCYTES % (AUTO) 16.1 % (20.0-45.0); MEAN CORPUSCULAR HEMOGLOBIN 28.7 PG (27.0-31.0); MEAN CORPUSCULAR HGB CONC 31.6 G/DL (32.0-36.0); MEAN CORPUSCULAR VOLUME 91 FL (80-99); MEAN PLATELET VOLUME 7.5 FL (6.5-10.1); MONOCYTES % (AUTO) 5.8 % (1.0-10.0); NEUTROPHILS % (AUTO) 77.8 % (45.0-75.0); PLATELET COUNT 253 K/UL (150-450); RED BLOOD COUNT 3.59 M/UL (4.20-5.40); RED CELL DISTRIBUTION WIDTH 12.6 % (11.6-14.8); WHITE BLOOD COUNT 9.4 K/UL (4.8-10.8)
[2017-01-27] MEDS: Montelukast 10mg tablet ORAL SCH (08:44)
[2017-01-27] MEDS: celeBREX 200mg Cap **SURGERY PATIENTS ONLY ORAL SCH (08:45)
[2017-01-27] MEDS ORDERED: Atenolol 25mg tab ORAL SCH (09:00)
[2017-01-27] MEDS: Qvar 40mcg Inhaler 6.8 gm INH SCH ×2 (09:50→18:00)
--- NOTE | 2017-01-27 10:05 | Pulmonology Progress Note ---
Assessment/Plan Assessment/Plan ASSESSMENT Acute asthma exacerbation HTN Acute renal failure -resolved Elevated D dimer hyperkalemia -resolved PLAN OF CARE MS floor O2 to keep sat above 92% Pulmonary toilet prn initial ABG on RA with sat 92% currently on RA pulse oximetry stable taper IV steroids to daily in am Empiric abx Sputum cx if able a/tussive prn CXR no acute cardiopulmonary pathology Elevated D dimer but VQ scan no evidence of PE s/p IVF x 1 L Monitor renal parameters, lytes, creat down to normal K-5,5. was on AIDA at home , off AIDA since 01/26 and started on BB s/p Kayexalate x 1 01/26, K stable Avoid nephrotoxic Continue Singular Low TSH noted, slightly elevated free T4 , , recommend to recheck thyroid panel in 1 month , dc plan for am per PMD , will leave script for Medrol case discussed and evaluated by supervising physician Subjective Allergies: Coded Allergies: No Known Allergies (Unverified , 01/24/17) Subjective feeling better, no wheezing, no SOB + cough, non productive BP on the low side Objective Last 24 Hour Vital Signs Date Time Temp Pulse Resp B/P (MAP) Pulse Ox O2 Delivery O2 Flow Rate FiO2 01/27/17 08:00 98.3 88 20 94/56 97 Room Air 01/27/17 04:00 97.7 83 18 101/56 100 Room Air 01/27/17 02:20 74 20 101/54 98 Room Air 01/27/17 00:00 98.4 74 20 98/53 98 Room Air 01/26/17 23:25 96 18 100 Room Air 01/26/17 23:17 96 20 97 Room Air 01/26/17 20:00 98.4 96 18 105/58 100 Room Air 01/26/17 19:54 99 18 99 Room Air 01/26/17 19:53 101 18 96 Nasal Cannula 2.0 28 01/26/17 16:00 98.8 115 20 101/57 98 Room Air 01/26/17 15:31 98 18 100 Room Air 01/26/17 15:21 100 19 100 Room Air 01/26/17 12:10 98.3 96 18 120/68 96 Room Air Intake and Output 01/27/17 01/28/17 19:00 07:00 Intake Total 24 ml Balance 24 ml Intake Oral 24 ml Objective General Appearance: no acute distress, A/A/O x 4 obese female HEENT: normocephalic, atraumatic, anicteric, mucous membranes moist, PERRL Respiratory/Chest: few isolated wheezes, clearing Cardiovascular: normal peripheral pulses, normal rate, regular rhythm Abdomen: normal bowel sounds, soft, non tender, obese Extremities: no edema 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, alert, oriented x 3, responsive, normal mood/affect Musculoskeletal: normal muscle bulk Laboratory Tests 01/26/17 10:00: White Blood Count 6.9, Red Blood Count 4.09L, Hemoglobin 11.8L, Hematocrit 37.2 , Mean Corpuscular Volume 91, Mean Corpuscular Hemoglobin 28.8, Mean Corpuscular Hemoglobin Concent 31.7L, Red Cell Distribution Width 12.7, Platelet Count 310, Mean Platelet Volume 7.5, Neutrophils (%) (Auto) , Lymphocytes (%) (Auto) , Monocytes (%) (Auto) , Eosinophils (%) (Auto) , Basophils (%) (Auto) , Differential Total Cells Counted 100, Neutrophils % ( Manual) 94H, Lymphocytes % (Manual) 6L, Monocytes % (Manual) 0L, Eosinophils % ( Manual) 0, Basophils % (Manual) 0, Band Neutrophils 0, Platelet Estimate Adequate, Platelet Morphology Normal, Hypochromasia 1+, Sodium Level 138, Potassium Level 5.5H, Chloride Level 102, Carbon Dioxide Level 22, Anion Gap 14 , Blood Urea Nitrogen 24H, Creatinine 0.9, Estimat Glomerular Filtration Rate > 60, Glucose Level 158H, Calcium Level 9.6, Troponin I < 0.30, Free Thyroxine 1.88H, Free Triiodothyronine 2.5 01/27/17 06:10: Sodium Level 143, Potassium Level 4.1, Chloride Level 105, Carbon Dioxide Level 26, Anion Gap 12, Blood Urea Nitrogen 27H, Creatinine 1.0H, Estimat Glomerular Filtration Rate 58.7, Glucose Level 114H, Calcium Level 8.8 01/27/17 06:15: White Blood Count 9.4, Red Blood Count 3.59L, Hemoglobin 10.3L, Hematocrit 32.5L , Mean Corpuscular Volume 91, Mean Corpuscular Hemoglobin 28.7, Mean Corpuscular Hemoglobin Concent 31.6L, Red Cell Distribution Width 12.6, Platelet Count 253, Mean Platelet Volume 7.5, Neutrophils (%) (Auto) 77.8H, Lymphocytes (%) (Auto) 16.1L, Monocytes (%) (Auto) 5.8, Eosinophils (%) (Auto) 0.0, Basophils (%) (Auto) 0.4 Current Medications Medications (Trade) Dose Ordered Sig/Jarrett Route PRN Reason Start Time Stop Time Status Last Admin Dose Admin Albuterol/ Ipratropium (DuoNeb 0.5-3(2.5)mg/3ml) 3 ml Q4H PRN HHN Shortness of Breath 01/25/17 18:00 01/30/17 17:59 Albuterol/ Ipratropium (DuoNeb 0.5-3(2.5)mg/3ml) 3 ml Q4HRT HHN 01/26/17 15:00 01/31/17 14:59 01/26/17 23:16 Atenolol (Tenormin) 25 mg DAILY ORAL 01/27/17 09:00 02/26/17 08:59 Beclomethasone Dipropionate (Qvar 40 Inhaler) 1 puff TWICE A DAY INH 01/25/17 18:00 02/24/17 08:59 01/26/17 15:27 Celecoxib (CeleBREX) 200 mg DAILY ORAL 01/26/17 09:00 02/24/17 08:59 01/27/17 08:45 Gabapentin (Neurontin) 800 mg THREE TIMES A DAY ORAL 01/25/17 18:00 02/24/17 08:59 01/27/17 08:44 Hydrochlorothiazide (Hydrodiuril) 12.5 mg DAILY ORAL 01/26/17 09:00 02/24/17 08:59 01/27/17 08:45 Levofloxacin 100 ml @ 100 mls/hr Q24H IVPB 01/26/17 15:00 02/01/17 14:59 01/26/17 15:14 Methylprednisolone Sodium Succinate (Solu-MEDROL) 60 mg EVERY 8 HOURS IVP 01/26/17 14:00 02/24/17 17:59 01/27/17 05:56 Montelukast Sodium (Singulair) 10 mg DAILY ORAL 01/26/17 09:00 02/24/17 08:59 01/27/17 08:44 Promethazine HCl/ Codeine (Phenergan with Codeine) 5 ml Q4H PRN ORAL For Cough 01/26/17 12:00 02/25/17 11:59 Tramadol HCl (Ultram) 50 mg Q6H PRN ORAL For Pain 01/25/17 18:15 02/01/17 00:14 Jose J ([facility])Joan NP Jan 27, 2017 10:05
--- NOTE | 2017-01-27 15:04 | Internal Med Progress Note ---
Subjective Date of Service: Jan 27, 2017 Physician Name Bruno Price Attending Physician Mitchell Caldera MD Current Medications Medications (Trade) Dose Ordered Sig/Jarrett Route PRN Reason Start Time Stop Time Status Last Admin Dose Admin Albuterol/ Ipratropium (DuoNeb 0.5-3(2.5)mg/3ml) 3 ml Q4H PRN HHN Shortness of Breath 01/25/17 18:00 01/30/17 17:59 Albuterol/ Ipratropium (DuoNeb 0.5-3(2.5)mg/3ml) 3 ml Q4HRT HHN 01/26/17 15:00 01/31/17 14:59 01/27/17 10:20 Beclomethasone Dipropionate (Qvar 40 Inhaler) 1 puff TWICE A DAY INH 01/25/17 18:00 02/24/17 08:59 01/27/17 09:50 Celecoxib (CeleBREX) 200 mg DAILY ORAL 01/26/17 09:00 02/24/17 08:59 01/27/17 08:45 Gabapentin (Neurontin) 800 mg THREE TIMES A DAY ORAL 01/25/17 18:00 02/24/17 08:59 01/27/17 13:19 Hydrochlorothiazide (Hydrodiuril) 12.5 mg DAILY ORAL 01/26/17 09:00 02/24/17 08:59 01/27/17 08:45 Levofloxacin 100 ml @ 100 mls/hr Q24H IVPB 01/26/17 15:00 02/01/17 14:59 01/26/17 15:14 Methylprednisolone Sodium Succinate (Solu-MEDROL) 60 mg BID IVP 01/27/17 18:00 01/28/17 08:59 Methylprednisolone Sodium Succinate (Solu-MEDROL) 60 mg DAILY IVP 01/28/17 09:00 02/03/17 08:59 Montelukast Sodium (Singulair) 10 mg DAILY ORAL 01/26/17 09:00 02/24/17 08:59 01/27/17 08:44 Promethazine HCl/ Codeine (Phenergan with Codeine) 5 ml Q4H PRN ORAL For Cough 01/26/17 12:00 02/25/17 11:59 Tramadol HCl (Ultram) 50 mg Q6H PRN ORAL For Pain 01/25/17 18:15 02/01/17 00:14 Allergies: Coded Allergies: No Known Allergies (Unverified , 01/24/17) ROS Limited/Unobtainable: No Constitutional: Reports: no symptoms HEENT: Reports: no symptoms Cardiovascular: Reports: no symptoms Respiratory: Reports: shortness of breath Gastrointestinal/Abdominal: Reports: no symptoms Genitourinary: Reports: no symptoms Neurologic/Psychiatric: Reports: no symptoms Subjective 51 YO F admitted with shortness of breath and chest pain. Cover for Int Spenser-Dr Caldera. Objective Last Vital Signs Date Time Temp Pulse Resp B/P (MAP) Pulse Ox O2 Delivery O2 Flow Rate FiO2 01/27/17 08:00 98.3 88 20 94/56 97 Room Air 01/26/17 19:53 2.0 28 Laboratory Tests Test 01/27/17 06:10 01/27/17 06:15 Sodium Level 143 mEQ/L (135-145) Potassium Level 4.1 mEQ/L (3.4-4.9) Chloride Level 105 mEQ/L (98-107) Carbon Dioxide Level 26 mEQ/L (20-30) Anion Gap 12 (5-15) Blood Urea Nitrogen 27 mg/dL (7-23) H Creatinine 1.0 mg/dL (0.5-0.9) H Estimat Glomerular Filtration Rate 58.7 mL/min (>60) Glucose Level 114 mg/dL (74-106) H Calcium Level 8.8 mg/dL (8.6-10.2) White Blood Count 9.4 K/UL (4.8-10.8) Red Blood Count 3.59 M/UL (4.20-5.40) L Hemoglobin 10.3 G/DL (12.0-16.0) L Hematocrit 32.5 % (37.0-47.0) L Mean Corpuscular Volume 91 FL (80-99) Mean Corpuscular Hemoglobin 28.7 PG (27.0-31.0) Mean Corpuscular Hemoglobin Concent 31.6 G/DL (32.0-36.0) L Red Cell Distribution Width 12.6 % (11.6-14.8) Platelet Count 253 K/UL (150-450) Mean Platelet Volume 7.5 FL (6.5-10.1) Neutrophils (%) (Auto) 77.8 % (45.0-75.0) H Lymphocytes (%) (Auto) 16.1 % (20.0-45.0) L Monocytes (%) (Auto) 5.8 % (1.0-10.0) Eosinophils (%) (Auto) 0.0 % (0.0-3.0) Basophils (%) (Auto) 0.4 % (0.0-2.0) Intake and Output 01/27/17 01/28/17 19:00 07:00 Intake Total 24 ml Balance 24 ml Intake Oral 24 ml Objective General Appearance: WD/WN, no apparent distress, alert, obese EENT: PERRL/EOMI, normal ENT inspection, TMs normal Neck: non-tender, normal alignment, supple, normal inspection Cardiovascular: normal peripheral pulses, normal rate, regular rhythm, no gallop/murmur, no JVD Respiratory/Chest: chest wall non-tender, no respiratory distress, no accessory muscle use, crackles/rales, rhonchi - bilaterally, expiratory wheezing Abdomen: normal bowel sounds, non tender, soft, no organomegaly, no mass Extremities: normal range of motion 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 See pulmonary note. (3) Acute asthma exacerbation Assessment & Plan: See pulmonary note. Cont albuterol nebs and IV solumedrol. (4) HTN (hypertension) Assessment & Plan: Continue HCTZ (5) Bronchitis Assessment & Plan: Continue levaquin per BRUNO Jalloh Jan 27, 2017 15:04
[2017-01-27] MEDS ORDERED: Solu-MEDROL 125mg Inj IVP SCH (18:00)
[2017-01-27] MEDS ORDERED: NS 550ML IV ONE (18:25)
[2017-01-28] VITALS: BP 125/79
[2017-01-28] MEDS: DuoNeb 0.5-3(2.5)mg/3ml neb HHN SCH ×3 (03:00→10:54)
[2017-01-28 04:00] VITALS: BP 118/58
[2017-01-28 05:14] LABS: BASOPHILS % (AUTO) 0.3 % (0.0-2.0); LYMPHOCYTES % (AUTO) 14.4 % (20.0-45.0); MEAN CORPUSCULAR HEMOGLOBIN 29.3 PG (27.0-31.0); MEAN CORPUSCULAR VOLUME 91 FL (80-99); MEAN PLATELET VOLUME 7.5 FL (6.5-10.1); MONOCYTES % (AUTO) 5.6 % (1.0-10.0); NEUTROPHILS % (AUTO) 79.8 % (45.0-75.0); PLATELET COUNT 239 K/UL (150-450); RED BLOOD COUNT 3.58 M/UL (4.20-5.40); RED CELL DISTRIBUTION WIDTH 12.7 % (11.6-14.8); WHITE BLOOD COUNT 6.7 K/UL (4.8-10.8)
[2017-01-28 05:37] LABS: CREATININE 1.1 mg/dL (0.5-0.9); GLOMERULAR FILTRATION RATE 52.6 mL/min (>60); POTASSIUM 4.9 mEQ/L (3.4-4.9)
[2017-01-28 08:00] VITALS: BP 108/57
[2017-01-28] MEDS ORDERED: Solu-MEDROL 125mg Inj IVP SCH (09:00)
[2017-01-28] MEDS: Qvar 40mcg Inhaler 6.8 gm INH SCH (09:03)
[2017-01-28] MEDS: Montelukast 10mg tablet ORAL SCH (09:26)
[2017-01-28] MEDS: celeBREX 200mg Cap **SURGERY PATIENTS ONLY ORAL SCH (09:26)
[2017-01-28] MEDS ORDERED: LEVAQUIN500 MG ORAL (10:50)
--- NOTE | 2017-01-28 10:53 | Internal Med Progress Note ---
Subjective Physician Name Bruno Lees Attending Physician Mitchell Caldera MD Current Medications Medications (Trade) Dose Ordered Sig/Jarrett Route PRN Reason Start Time Stop Time Status Last Admin Dose Admin Albuterol/ Ipratropium (DuoNeb 0.5-3(2.5)mg/3ml) 3 ml Q4H PRN HHN Shortness of Breath 01/25/17 18:00 01/30/17 17:59 Albuterol/ Ipratropium (DuoNeb 0.5-3(2.5)mg/3ml) 3 ml Q4HRT HHN 01/26/17 15:00 01/31/17 14:59 01/28/17 07:38 Beclomethasone Dipropionate (Qvar 40 Inhaler) 1 puff TWICE A DAY INH 01/25/17 18:00 02/24/17 08:59 01/28/17 09:03 Celecoxib (CeleBREX) 200 mg DAILY ORAL 01/26/17 09:00 02/24/17 08:59 01/28/17 09:26 Gabapentin (Neurontin) 800 mg THREE TIMES A DAY ORAL 01/25/17 18:00 02/24/17 08:59 01/28/17 09:26 Hydrochlorothiazide (Hydrodiuril) 12.5 mg DAILY ORAL 01/26/17 09:00 02/24/17 08:59 01/28/17 09:26 Levofloxacin 100 ml @ 100 mls/hr Q24H IVPB 01/26/17 15:00 02/01/17 14:59 01/27/17 16:30 Methylprednisolone Sodium Succinate (Solu-MEDROL) 60 mg DAILY IVP 01/28/17 09:00 02/03/17 08:59 01/28/17 09:26 Montelukast Sodium (Singulair) 10 mg DAILY ORAL 01/26/17 09:00 02/24/17 08:59 01/28/17 09:26 Promethazine HCl/ Codeine (Phenergan with Codeine) 5 ml Q4H PRN ORAL For Cough 01/26/17 12:00 02/25/17 11:59 Tramadol HCl (Ultram) 50 mg Q6H PRN ORAL For Pain 01/25/17 18:15 02/01/17 00:14 01/27/17 19:53 Allergies: Coded Allergies: No Known Allergies (Unverified , 01/24/17) ROS Limited/Unobtainable: No Constitutional: Reports: no symptoms HEENT: Reports: no symptoms Cardiovascular: Reports: no symptoms Respiratory: Reports: shortness of breath Gastrointestinal/Abdominal: Reports: no symptoms Genitourinary: Reports: no symptoms Neurologic/Psychiatric: Reports: no symptoms Subjective 51 YO F admitted with shortness of breath and chest pain. Cover for Int Spenser-Dr Caldera. Await Discharge Home today Objective Last Vital Signs Date Time Temp Pulse Resp B/P (MAP) Pulse Ox O2 Delivery O2 Flow Rate FiO2 01/28/17 09:04 69 18 97 Room Air 01/28/17 04:00 97.4 118/58 01/28/17 03:05 21 01/27/17 17:54 2.0 Laboratory Tests Test 01/28/17 04:50 White Blood Count 6.7 K/UL (4.8-10.8) Red Blood Count 3.58 M/UL (4.20-5.40) L Hemoglobin 10.5 G/DL (12.0-16.0) L Hematocrit 32.7 % (37.0-47.0) L Mean Corpuscular Volume 91 FL (80-99) Mean Corpuscular Hemoglobin 29.3 PG (27.0-31.0) Mean Corpuscular Hemoglobin Concent 32.0 G/DL (32.0-36.0) Red Cell Distribution Width 12.7 % (11.6-14.8) Platelet Count 239 K/UL (150-450) Mean Platelet Volume 7.5 FL (6.5-10.1) Neutrophils (%) (Auto) 79.8 % (45.0-75.0) H Lymphocytes (%) (Auto) 14.4 % (20.0-45.0) L Monocytes (%) (Auto) 5.6 % (1.0-10.0) Eosinophils (%) (Auto) 0.0 % (0.0-3.0) Basophils (%) (Auto) 0.3 % (0.0-2.0) Sodium Level 143 mEQ/L (135-145) Potassium Level 4.9 mEQ/L (3.4-4.9) Chloride Level 105 mEQ/L (98-107) Carbon Dioxide Level 27 mEQ/L (20-30) Anion Gap 11 (5-15) Blood Urea Nitrogen 25 mg/dL (7-23) H Creatinine 1.1 mg/dL (0.5-0.9) H Estimat Glomerular Filtration Rate 52.6 mL/min (>60) Glucose Level 133 mg/dL (74-106) H Calcium Level 9.0 mg/dL (8.6-10.2) Objective General Appearance: WD/WN, no apparent distress, alert, obese EENT: PERRL/EOMI, normal ENT inspection, TMs normal Neck: non-tender, normal alignment, supple, normal inspection Cardiovascular: normal peripheral pulses, normal rate, regular rhythm, no gallop/murmur, no JVD Respiratory/Chest: chest wall non-tender, no respiratory distress, no accessory muscle use, crackles/rales, rhonchi - bilaterally, expiratory wheezing Abdomen: normal bowel sounds, non tender, soft, no organomegaly, no mass Extremities: normal range of motion 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 See pulmonary note. (3) Acute asthma exacerbation Assessment & Plan: See pulmonary note. Cont albuterol nebs and IV solumedrol. D/C on medrol dose pack (4) HTN (hypertension) Assessment & Plan: Continue HCTZ (5) Bronchitis Assessment & Plan: Continue oral levaquin for 7 days Status: stable BRUNO LEES Jan 28, 2017 10:53
[2017-01-28 12:00] VITALS: BP 120/63
--- NOTE | 2017-01-29 00:30 | Consultation ---
DATE OF CONSULTATION: 01/28/2017 HISTORY OF PRESENT ILLNESS: The patient is a 51-year-old lady with past medical history of asthma, hypertension, and DJD. The patient has been admitted to the hospital because of chest pain and shortness of breath most likely in the setting of asthma exacerbation. On arrival to the hospital, the patient has been found to have renal failure. Unfortunately, we do not have any information about the patient's baseline creatinine. She denies having any history of renal failure. No urine output has been calculated yet. The patient has been on several medications including hydrochlorothiazide, benazepril, and also Celebrex. She cannot exactly tell me how much Celebrex and how long she has been taking that. There is no report of the patient having vomiting or diarrhea. No urine output has been calculated. PAST MEDICAL HISTORY: Hypertension, asthma, and DJD. MEDICATIONS: Tramadol, Prilosec, Singulair, hydrochlorothiazide, gabapentin, Celebrex, benazepril, and inhaler. ALLERGIES: No known drug allergies. SOCIAL HISTORY: Nonsmoker and nondrinker. No drug abuse. FAMILY HISTORY: Noncontributory. REVIEW OF SYSTEMS: Positive for chest pain, heaviness, and also shortness of breath. PHYSICAL EXAMINATION: VITAL SIGNS: Temperature 97.6 degrees, blood pressure 108/57, respiratory rate 19, heart rate 78, and oxygen saturation 96% on 2 L via nasal cannula. GENERAL: The patient is in no acute distress. HEENT: She has conjunctival pallor. Mucous membranes are moist. SKIN: Skin turgor is normal. HEART: Rate and rhythm is regular. PULMONARY: Shows scattered rhonchi and expiratory wheezing. ABDOMEN: Benign. EXTREMITIES: Shows trace edema of the lower extremity. LABORATORY DATA: Sodium 143, potassium 4.9, bicarbonate 27, chloride 105, BUN 25, creatinine 1.1, and calcium 9. ASSESSMENT AND PLAN: The patient is a 51-year-old lady with past medical history of hypertension and asthma. The patient has been admitted to the hospital with chest pain and shortness of breath most likely in the setting of asthma exacerbation. The patient has been found to have renal failure. 1. Unfortunately, we do not have any information about the patient's baseline creatinine. Most likely, she has acute renal failure because of acute tubular necrosis versus prerenal mechanism. 2. For now, we will continue with strict intake and output. 3. Another reason for the patient's kidney function might be because of Celebrex. 4. For now, it is okay to continue benazepril but I would avoid using nonsteroidal antiinflammatory drugs and Celebrex. 5. If the renal function gets worse, I will check the renal ultrasound to evaluate for size discrepancy, echogenicity, and also obstructive nephropathy. Lukas Arevalo M.D. DR: OBEY JOB#: [id number] CC:
--- NOTE | 2017-01-29 02:15 | Consultation ---
DATE OF CONSULTATION: 01/28/2017 HISTORY OF PRESENT ILLNESS: The patient is a 51-year-old lady with past medical history of hypertension, DJD, and asthma. The patient has been admitted to the hospital with chest pain and shortness of breath most likely in the setting of asthma exacerbation. On arrival to the hospital, the patient had been found to have renal failure. Her chest pain is not sharp, mainly it is heaviness. The patient also has been complaining of wheezing. She denies . INCOMPLETE DICTATION. Lukas Arevalo M.D. DR: OBEY JOB#: [id number] CC:
--- NOTE | 2017-01-29 15:53 | Cardiology Report ---
APPROVED REPORT EKG Measurement Heart [id number] Sinus tachycardia Possible Inferior infarct, age undetermined Possible Anterolateral infarct, age undetermined Abnormal ECG
[2017-01-30] MEDS ORDERED: MEDROL4 MG ORAL (10:47)
--- NOTE | 2017-01-30 10:48 | Discharge Summary ---
Discharge Summary Hospital Course Date of Admission Jan 24, 2017 at 19:32 Date of Discharge Jan 28, 2017 at 13:46 Admitting Diagnosis hypoxia; dyspnea HPI Maria Teresa Razo is a 51 year old female who was admitted on Jan 24, 2017 at 19: 32 for Hypoxia/Dyspnea Hospital Course dc summary #[id number] Discharge Medications New Medications: Levofloxacin* (Levaquin*) 500 Mg Tablet 500 MG ORAL DAILY for 7 Days, TAB Methylprednisolone* (Medrol*) 4 Mg Tablet 4 MG ORAL DAILY, #10 TAB 0 Refills Continued Medications: Albuterol Sulfate (Ventolin Hfa) 18 Gm Hfa.aer.ad 1 PUFF INH EVERY 6 HOURS, #18 GM 0 Refills Beclomethasone Dipropionate 40MCG Oral Inh (Qvar 40*) 7.3 Gm Aer.w.adap 1 PUFF INH TWICE A DAY, GM 0 Refills Gabapentin* (Gabapentin*) 800 Mg Tablet 800 MG ORAL THREE TIMES A DAY, TAB Hydrochlorothiazide* (Hydrochlorothiazide*) 12.5 Mg Tablet 12.5 MG ORAL DAILY, TAB Montelukast Sodium* (Montelukast Sodium*) 10 Mg Tablet 10 MG ORAL DAILY, TAB Omeprazole (Omeprazole) 40 Mg Capsule.dr 40 MG ORAL DAILY, CAP Tramadol Hcl* (Ultram*) 50 Mg Tablet 50 MG ORAL Q6H PRN for For Pain, #30 TAB 0 Refills Discharge Condition Upon Discharge: stable Discharge Disposition Patient was discharged to Home (01) Discharge Diagnoses: Jose J ([facility])Joan NP Jan 30, 2017 10:48
--- NOTE | 2017-01-31 04:30 | Discharge Summary 2 SIG ---
DATE OF ADMISSION: 01/24/2017 DATE OF DISCHARGE: 01/28/2017 REASON FOR ADMISSION: The patient is a 51-year-old female with a history of hypertension and asthma, presented with shortness of breath for one week. She reported shortness of breath at rest and on exertion and nonproductive cough. Denied chest pain. She was using inhaler once a day with minimal relief. No recent steroid use. The patient reported symptoms were similar to prior episodes of asthma exacerbation. The patient denied fever and chills. Denied sick contacts or recent travel. The patient required admission for asthma in the past. However, she denied intensive care unit admission, intubation, or use of the BiPAP. She denied history of PE, DVT, no recent surgery, prolonged embolization, malignancy, or use of the hormonal therapy. The patient reported not using the QVAR at home only using the rescue albuterol. Workup in the emergency room revealed low blood pressure of 97/65. The patient was hypoxic with 90% to 92%, no leukocytosis, stable hemoglobin and hematocrit. Elevated D-dimer 561. BUN 28 and creatinine 1.6. Troponin negative. EKG revealed sinus tachycardia, no acute ischemic changes. Chest x-ray revealed no acute disease, but showed right chest wall deformity with several fractured ribs appears to be old, lungs were clear, cardiomegaly was present. EKG revealed sinus tachycardia with heart rate of 110. ABG were done on the room air and revealed saturation 92%, otherwise no evidence of acidosis or hypercapnia. The patient admitted for further management. ADMITTING DIAGNOSES: 1. Acute asthma exacerbation. 2. Hypertension with current hypotension. 3. Acute renal failure. 4. Elevated D-dimer. HOSPITAL STAY: The patient was admitted. The patient was started on supplemental oxygen as needed to keep saturation above 92%. Pulmonary toilet was provided as needed. The patient was started on IV steroids, which were tapered gradually. The patient was started on empiric antibiotics. Unable to provide sputum culture since the cough overall was nonproductive. Antitussives provided as needed. The patient was started on the IV fluids. V/Q scan done in the emergency room revealed no evidence of the PE. The patient was started on IV fluids and received 1 liter. Creatinine down to normal. Acute renal failure was likely due to dehydration. Potassium was 5.5. The patient was on AIDA inhibitor. AIDA inhibitor discontinued and the patient started on beta-bibiana. Isabellexalate was given. Recommended to avoid nephrotoxics especially nonsteroid anti-inflammatory medication including Celebrex. Continue Singular. Bar Roller consulted the patient regarding acute renal failure, concurred with current medication regimen, and stressed importance of avoiding nonsteroid anti-inflammatory medication. Low TSH noted. T4 and T3 noted, borderline elevated T4. Recommended to recheck thyroid panel in one month. The patient was stable for discharge home. Prescription provided for maintenance inhaler along with rescue inhaler, Medrol Dosepak, and empiric antibiotics. DISCHARGE DIAGNOSES: 1. Acute asthma exacerbation. 2. Hypertension. 3. Acute renal failure, resolved. 4. Hyperkalemia, resolved. 5. Elevated D-dimer. DISCHARGE MEDICATIONS: See medication reconciliation list. DISCHARGE INSTRUCTIONS: The patient was discharged home. FOLLOWUP: Follow up with primary medical doctor. Mitchell Caldera M.D. I have been assigned to dictate discharge summary on this account and I was not involved in the patient's management. Joan Bromanhattan eye, ear and throat hospitalDain NBright DR: MARIA FERNANDA JOB#: [id number] CC:
== END 2017-01-28 13:46 | disposition home or self-care (01) | DRG 141 ==
LOC: EMR 15:00 → EDBEDREQTM 18:37 → EDBEDREQ 18:37 → 2E 19:32 → EDBEDREQ 21:14 → EDBEDREQSVC 21:14 → EDBEDREQTM 21:14 → EDBEDREQ 21:23 → EDBEDREQTM 23:19 → EDBEDREQSVC 23:19 → EDBEDREQ 23:19 → 3E 01-25 17:33
DX: J45.901 Unspecified asthma with (acute) exacerbation (principal); N17.9 Acute kidney failure, unspecified; I10 Essential (primary) hypertension; E87.5 Hyperkalemia; M17.0 Bilateral primary osteoarthritis of knee; E86.0 Dehydration
CPT/HCPCS: 36415; 36600; 71010; 78579; 78580; 80048; 80053; 82803; 83735; 84100; 84439; 84443; 84481; 84484; 85007; 85025; 85379; 85610; 85730; 93005; 94640; 94664; 99285; A9503; J7620